=== PATIENT | male | born 2000 | race Hispanic/Latino ===

== ENCOUNTER 2019-03-05 08:02 | Emergency (ER) | payer OTHER, SELFPAY ==
[2019-03-05] MEDS ORDERED: Ciprofloxacin HCL/Dexameth Otic Drops 7.5 ml Bottle ONE (08:23)
== END 2019-03-05 08:28 | disposition home or self-care (01) ==
LOC: ERS 08:02
DX: H66.92 Otitis media, unspecified, left ear (principal); H60.92 Unspecified otitis externa, left ear
CPT/HCPCS: 99282